=== PATIENT | male | born 1945 | race Caucasian/White ===

== ENCOUNTER 2018-08-19 03:11 | Outpatient (CLI) | payer MEDICARE, BC | END 2018-08-19 23:59 | disposition home or self-care (01) | LOC: DIABETIC 03:11 | PROVIDERS: ATTEND Specialist | DX: E10.65 Type 1 diabetes mellitus with hyperglycemia (principal); Z79.2 Long term (current) use of antibiotics; Z79.4 Long term (current) use of insulin; Z79.84 Long term (current) use of oral hypoglycemic drugs | CPT/HCPCS: G0108 ==

== ENCOUNTER 2019-02-21 04:30 | Outpatient (CLI) | payer MEDICARE, BC | END 2019-02-21 23:59 | disposition home or self-care (01) | LOC: DIABETIC 04:30 | PROVIDERS: ATTEND Specialist | DX: E10.65 Type 1 diabetes mellitus with hyperglycemia (principal); Z79.4 Long term (current) use of insulin; Z79.84 Long term (current) use of oral hypoglycemic drugs; Z79.899 Other long term (current) drug therapy | CPT/HCPCS: G0108 ==

== ENCOUNTER 2019-05-19 01:30 | Outpatient (CLI) | payer MEDICARE, BC | END 2019-05-19 23:59 | disposition home or self-care (01) | LOC: DIABETIC 01:30 | PROVIDERS: ATTEND Specialist | DX: E10.65 Type 1 diabetes mellitus with hyperglycemia (principal); Z79.4 Long term (current) use of insulin | CPT/HCPCS: G0108 ==